=== PATIENT | male | born 1995 | race Caucasian/White ===

== ENCOUNTER 2021-07-04 11:33 | Emergency (ER) | payer OTHER ==
[~2021-07-04] VITALS: Ht 165.1 cm; Wt 81.6 kg
[~2021-07-04 11:33] MED LIST: AUGMENTIN250 MG PO; NORCO 5/3251 EACH PO
[2021-07-04] MEDS ORDERED: MEDROL 4MG DOSEP4 MG PO (13:41)
== END 2021-07-04 13:55 | disposition home or self-care (01) ==
LOC: FER 11:33
DX: S83.421A Sprain of lateral collateral ligament of right knee, initial encounter (principal); X50.9XXA Other and unspecified overexertion or strenuous movements or postures, initial encounter; Y93.89 Activity, other specified; Y92.009 Unspecified place in unspecified non-institutional (private) residence as the place of occurrence of the external cause
CPT/HCPCS: 73564; J1100